=== PATIENT | female | born 2000 | race Caucasian/White ===

== ENCOUNTER 2020-01-04 22:20 | Emergency (ER) | payer OTHER ==
[~2020-01-04] VITALS: Ht 167.6 cm; Wt 74.8 kg
[2020-01-04 22:28] VITALS: BP 113/79
[2020-01-04] MEDS ORDERED: PROAIR HFA8.5 GM INH (22:36)
== END 2020-01-04 23:09 | disposition home or self-care (01) ==
LOC: M.ERS 22:20
DX: T74.21XA Adult sexual abuse, confirmed, initial encounter (principal); Z91.018 Allergy to other foods